=== PATIENT | female | born 1980 | race Caucasian/White ===

== ENCOUNTER 2022-02-17 19:39 | Inpatient (IN) ==
[2022-02-17 22:41] LABS: Arterial Base Excess iSTAT -7 MMOL/L (-2.5-2.5); Arterial Bicarbonate iSTAT 16.7 MMOL/L (20-26); Arterial O2 Saturation iSTAT 98 % (95-100); Arterial PCO2 iSTAT 29 MM HG (35-48); Arterial PO2 iSTAT 110 MM HG (80-95); Arterial Total CO2 iSTAT 18 MMO/L (23-27); Arterial pH iSTAT 7.373 (7.35-7.45)
[2022-02-17 22:44] LABS: Basophils % 0.2 % (0.0-0.8); Eosinophils # 0.1 10*3/uL (0.0-0.87); Eosinophils % 1.2 % (0.00-10.9); Hematocrit 32.8 VOL% (35.7-47.0); Hemoglobin 11.5 GM/DL (12.0-16.0); Immature Granulocytes % 0.7 %; Immature Granulocytes Absolute 0.08 #; Lymphocytes # 1.3 10*3/uL (1.4-4.0); Lymphocytes % 11.7 % (21.3-54.2); Mean Corpuscular HGB Conc 35.1 GM/DL (32-36); Mean Corpuscular Volume 87.5 FL (87-102); Mean Platelet Volume 10.5 FL (9.6-12.0); Monocytes # 0.9 10*3/uL (0.11-0.8); Monocytes % 7.5 % (1.7-12.7); Neutrophils % 78.7 % (38.7-73.9); Platelet Count 263 T/CUMM (130-400); Red Blood Count 3.75 MC/CUMM (3.8-5.5); Red Cell Distribution Width 14.4 % (9.3-17.3); White Blood Count 11.3 T/CUMM (4-12)
[2022-02-17] MEDS ORDERED: ACETAMINOPHEN 325 MG TABLET PO PRN (22:48)
[2022-02-17] MEDS ORDERED: diphenhydrAMINE CAP 25 MG CAPSULE PO PRN (22:48)
[2022-02-17] MEDS ORDERED: NICOTINE 21 MG/24 HR PATCH TRANSDERM PRN (22:48)
[2022-02-17] MEDS: ALBUTEROL 2.5 MG/3 ML NEB RESP TX SCH (22:48)
[2022-02-17 23:03] LABS: Calcium 8.6 MG/DL (8.5-10.1); Osmolality,Calculated 282.3 MOS/KG (273-304)
[2022-02-17 23:05] LABS: Potassium 2.2 MMOL/L (3.5-5.1)
[2022-02-17 23:16] LABS: Eosinophils 1 % (0-10); Lymphocytes 12 % (20-55); Platelet Estimate Adequate; Total Cells Counted 100
[2022-02-17] MEDS ORDERED: VANCOMYCIN INJ 1,250 MG in SODIUM CHLORIDE 0.9% 250 ML IV ONE (23:30)
[2022-02-17] MEDS ORDERED: OSELTAMIVIR 75 MG CAPSULE PO ONE (23:30)
[2022-02-17] MEDS ORDERED: PIPERACILLIN/TAZOBACTAM 3,375 MG in SODIUM CHLORIDE 0.9% 100 ML IV ONE (23:30)
[2022-02-17] MEDS: AZITHROMYCIN INJ 500 MG in SODIUM CHLORIDE 0.9% 250 ML IV SCH (23:40)
[2022-02-17] MEDS: SODIUM CHLORIDE 0.9% 1,000 ML IV SCH (23:45)
[2022-02-17] MEDS ORDERED: POTASSIUM CHLORIDE 20 MEQ TABLET PO ONE (23:45)
[2022-02-18] MEDS: ALBUTEROL/IPRATROPIUM 3 ML NEB RESP TX SCH ×6 (00:55→19:59)
[2022-02-18] MEDS ORDERED: VANCOMYCIN INJ 1,250 MG in SODIUM CHLORIDE 0.9% 250 ML IV ONE (01:00)
[2022-02-18] MEDS ORDERED: ALBUTEROL 2.5 MG/3 ML NEB RESP TX PRN (01:27)
[2022-02-18] MEDS: PIPERACILLIN/TAZOBACTAM 3,375 MG in SODIUM CHLORIDE 0.9% 100 ML IV SCH ×3 (02:28→23:55)
[2022-02-18] MEDS ORDERED: POTASSIUM CHLORIDE 20 MEQ TABLET PO ONE (04:00)
[2022-02-18 05:21] LABS: Basophils % 0.5 % (0.0-0.8); Eosinophils # 0.2 10*3/uL (0.0-0.87); Eosinophils % 2.4 % (0.00-10.9); Hematocrit 32.3 VOL% (35.7-47.0); Immature Granulocytes % 0.5 %; Immature Granulocytes Absolute 0.04 #; Lymphocytes # 1.2 10*3/uL (1.4-4.0); Lymphocytes % 14.7 % (21.3-54.2); Mean Corpuscular HGB Conc 34.1 GM/DL (32-36); Mean Platelet Volume 10.5 FL (9.6-12.0); Monocytes # 0.9 10*3/uL (0.11-0.8); Monocytes % 10.6 % (1.7-12.7); Neutrophils % 71.3 % (38.7-73.9); Platelet Count 242 T/CUMM (130-400); Red Blood Count 3.63 MC/CUMM (3.8-5.5); Red Cell Distribution Width 14.4 % (9.3-17.3); White Blood Count 8.3 T/CUMM (4-12)
[2022-02-18 05:39] LABS: Calcium 8.4 MG/DL (8.5-10.1); Osmolality,Calculated 282.4 MOS/KG (273-304)
[2022-02-18 05:41] LABS: Potassium 2.2 MMOL/L (3.5-5.1)
[2022-02-18] MEDS: POTASSIUM CHLORIDE RIDER 10 MEQ/100 ML PREMIX IV PRN ×7 (05:52→23:54)
[2022-02-18] MEDS: PANTOPRAZOLE 40 MG TABLET PO SCH (08:59)
[2022-02-18] MEDS: guaiFENesin/DM ER 600-30 MG TABLET PO PRN (08:59)
[2022-02-18] MEDS ORDERED: HEPARIN 5,000 UNIT/1 ML VIAL SUBCUT SCH (09:00)
[2022-02-18] MEDS ORDERED: OSELTAMIVIR 75 MG CAPSULE PO SCH (09:00)
[2022-02-18] MEDS: POTASSIUM CHLORIDE 20 MEQ TABLET PO SCH ×3 (09:35→21:19)
[2022-02-18] MEDS: CHOLECALCIFEROL 5,000 UNIT TABLET PO SCH (11:49)
[2022-02-18 12:34] LABS: Osmolality,Calculated 283.3 MOS/KG (273-304)
[2022-02-18 12:38] LABS: Potassium 2.4 MMOL/L (3.5-5.1)
[2022-02-18] MEDS: hydrALAZINE 20 MG/1 ML VIAL IV PRN ×2 (12:58→22:40)
[2022-02-18] MEDS: SODIUM CHLORIDE 0.9% 1,000 ML IV SCH (14:53)
[2022-02-18] MEDS ORDERED: REMDESIVIR 200 MG in SODIUM CHLORIDE 0.9% 210 ML IV ONE (15:00)
[2022-02-18] MEDS: RIVAROXABAN 20 MG TABLET PO SCH (17:12)
[2022-02-18] MEDS: ASCORBIC ACID 500 MG TABLET PO SCH (21:19)
[2022-02-18] MEDS: VANCOMYCIN INJ 1,250 MG in SODIUM CHLORIDE 0.9% 250 ML IV SCH (21:20)
[2022-02-18] MEDS: AZITHROMYCIN INJ 500 MG in SODIUM CHLORIDE 0.9% 250 ML IV SCH (22:40)
[2022-02-19] MEDS: ALBUTEROL/IPRATROPIUM 3 ML NEB RESP TX SCH ×8 (00:34→23:35)
[2022-02-19] MEDS: POTASSIUM CHLORIDE RIDER 10 MEQ/100 ML PREMIX IV PRN ×6 (01:00→19:38)
[2022-02-19] MEDS: SODIUM CHLORIDE 0.9% 1,000 ML IV SCH ×2 (03:59→17:17)
[2022-02-19 05:18] LABS: Basophils % 0.6 % (0.0-0.8); Eosinophils # 0.3 10*3/uL (0.0-0.87); Eosinophils % 5.8 % (0.00-10.9); Hematocrit 30.1 VOL% (35.7-47.0); Hemoglobin 10.4 GM/DL (12.0-16.0); Immature Granulocytes % 0.4 %; Immature Granulocytes Absolute 0.02 #; Lymphocytes % 19.7 % (21.3-54.2); Mean Corpuscular HGB Conc 34.6 GM/DL (32-36); Mean Corpuscular Volume 89.1 FL (87-102); Mean Platelet Volume 10.7 FL (9.6-12.0); Monocytes # 0.8 10*3/uL (0.11-0.8); Monocytes % 15.9 % (1.7-12.7); Neutrophils % 57.6 % (38.7-73.9); Platelet Count 256 T/CUMM (130-400); Red Blood Count 3.38 MC/CUMM (3.8-5.5); Red Cell Distribution Width 14.6 % (9.3-17.3)
[2022-02-19 05:43] LABS: Osmolality,Calculated 282.1 MOS/KG (273-304)
[2022-02-19 05:44] LABS: Eosinophils 7 % (0-10); Lymphocytes 19 % (20-55); Microcytosis Slight; Total Cells Counted 100
[2022-02-19 05:45] LABS: Albumin 1.9 G/DL (3.4-5.0); Bilirubin,Direct 0.17 MG/DL (0.0-0.20); Bilirubin,Indirect 0.5 MG/DL (0.0-1.0); Bilirubin,Total 0.7 MG/DL (0.20-1.00); Total Protein 6.5 G/DL (6.4-8.2)
[2022-02-19] MEDS: PIPERACILLIN/TAZOBACTAM 3,375 MG in SODIUM CHLORIDE 0.9% 100 ML IV SCH ×2 (10:20→19:38)
[2022-02-19] MEDS: REMDESIVIR 100 MG in SODIUM CHLORIDE 0.9% 100 ML IV SCH (10:23)
[2022-02-19] MEDS: ONDANSETRON 4 MG/2 ML VIAL IV PRN (10:24)
[2022-02-19] MEDS: DEXAMETHASONE 10 MG/1 ML VIAL IV SCH (10:25)
[2022-02-19] MEDS: PANTOPRAZOLE 40 MG TABLET PO SCH (10:25)
[2022-02-19] MEDS: ASCORBIC ACID 500 MG TABLET PO SCH ×2 (10:26→21:49)
[2022-02-19] MEDS: CHOLECALCIFEROL 5,000 UNIT TABLET PO SCH (10:26)
[2022-02-19] MEDS: ZINC GLUCONATE 50 MG TABLET PO SCH (10:26)
[2022-02-19] MEDS: guaiFENesin/DM ER 600-30 MG TABLET PO PRN (10:26)
[2022-02-19] MEDS: POTASSIUM CHLORIDE 20 MEQ TABLET PO SCH ×3 (10:33→21:49)
[2022-02-19] MEDS: VANCOMYCIN INJ 1,250 MG in SODIUM CHLORIDE 0.9% 250 ML IV SCH (17:18)
[2022-02-19] MEDS: RIVAROXABAN 20 MG TABLET PO SCH (17:18)
[2022-02-19] MEDS: AZITHROMYCIN INJ 500 MG in SODIUM CHLORIDE 0.9% 250 ML IV SCH (23:14)
[2022-02-20] MEDS: ALBUTEROL/IPRATROPIUM 3 ML NEB RESP TX SCH ×5 (00:19→19:47)
[2022-02-20] MEDS: PIPERACILLIN/TAZOBACTAM 3,375 MG in SODIUM CHLORIDE 0.9% 100 ML IV SCH ×3 (01:10→17:55)
[2022-02-20] MEDS: SODIUM CHLORIDE 0.9% 1,000 ML IV SCH ×3 (01:18→16:18)
[2022-02-20 05:53] LABS: Basophils % 0.3 % (0.0-0.8); Eosinophils % 0.1 % (0.00-10.9); Hematocrit 31.5 VOL% (35.7-47.0); Hemoglobin 10.7 GM/DL (12.0-16.0); Immature Granulocytes Absolute 0.15 #; Lymphocytes # 0.9 10*3/uL (1.4-4.0); Lymphocytes % 11.7 % (21.3-54.2); Mean Platelet Volume 10.8 FL (9.6-12.0); Monocytes # 0.7 10*3/uL (0.11-0.8); Monocytes % 10.1 % (1.7-12.7); Neutrophils % 75.8 % (38.7-73.9); Platelet Count 282 T/CUMM (130-400); Red Cell Distribution Width 14.6 % (9.3-17.3); White Blood Count 7.4 T/CUMM (4-12)
[2022-02-20 06:10] LABS: Calcium 8.2 MG/DL (8.5-10.1); Osmolality,Calculated 280.4 MOS/KG (273-304); Potassium 3.2 MMOL/L (3.5-5.1)
[2022-02-20 06:14] LABS: Albumin 1.9 G/DL (3.4-5.0); Bilirubin,Direct 0.19 MG/DL (0.0-0.20); Bilirubin,Indirect 0.2 MG/DL (0.0-1.0); Bilirubin,Total 0.4 MG/DL (0.20-1.00); Total Protein 5.9 G/DL (6.4-8.2)
[2022-02-20] MEDS: POTASSIUM CHLORIDE 20 MEQ TABLET PO SCH ×3 (11:43→20:41)
[2022-02-20] MEDS: ASCORBIC ACID 500 MG TABLET PO SCH ×2 (11:43→20:41)
[2022-02-20] MEDS: PANTOPRAZOLE 40 MG TABLET PO SCH (11:43)
[2022-02-20] MEDS: ZINC GLUCONATE 50 MG TABLET PO SCH (11:43)
[2022-02-20] MEDS: CHOLECALCIFEROL 5,000 UNIT TABLET PO SCH (11:44)
[2022-02-20] MEDS: DEXAMETHASONE 10 MG/1 ML VIAL IV SCH (11:44)
[2022-02-20] MEDS: REMDESIVIR 100 MG in SODIUM CHLORIDE 0.9% 100 ML IV SCH (11:46)
[2022-02-20] MEDS: VANCOMYCIN INJ 1,250 MG in SODIUM CHLORIDE 0.9% 250 ML IV SCH (11:54)
[2022-02-20] MEDS: RIVAROXABAN 20 MG TABLET PO SCH (16:25)
[2022-02-20] MEDS ORDERED: BENZONATATE 100 MG CAPSULE PO PRN (16:48)
[2022-02-20] MEDS: guaiFENesin/DM ER 600-30 MG TABLET PO SCH (22:49)
[2022-02-20] MEDS: AZITHROMYCIN INJ 500 MG in SODIUM CHLORIDE 0.9% 250 ML IV SCH (22:49)
[2022-02-21] MEDS: PIPERACILLIN/TAZOBACTAM 3,375 MG in SODIUM CHLORIDE 0.9% 100 ML IV SCH ×4 (00:43→23:04)
[2022-02-21] MEDS: ZALEPLON 5 MG CAPSULE PO PRN ×3 (00:48→23:05)
[2022-02-21] MEDS: ALBUTEROL/IPRATROPIUM 3 ML NEB RESP TX SCH ×6 (05:18→19:43)
[2022-02-21 06:21] LABS: Basophils % 0.3 % (0.0-0.8); Eosinophils % 0.1 % (0.00-10.9); Hematocrit 32.4 VOL% (35.7-47.0); Hemoglobin 10.9 GM/DL (12.0-16.0); Immature Granulocytes % 5.8 %; Immature Granulocytes Absolute 0.55 #; Lymphocytes # 1.4 10*3/uL (1.4-4.0); Lymphocytes % 14.4 % (21.3-54.2); Mean Corpuscular HGB Conc 33.6 GM/DL (32-36); Mean Corpuscular Volume 90.8 FL (87-102); Mean Platelet Volume 10.9 FL (9.6-12.0); Monocytes # 1.3 10*3/uL (0.11-0.8); Monocytes % 13.4 % (1.7-12.7); Platelet Count 352 T/CUMM (130-400); Red Blood Count 3.57 MC/CUMM (3.8-5.5); Red Cell Distribution Width 15.2 % (9.3-17.3); White Blood Count 9.5 T/CUMM (4-12)
[2022-02-21 06:43] LABS: Lymphocytes 15 % (20-55); Platelet Estimate Normal; Total Cells Counted 100
[2022-02-21 06:51] LABS: Calcium 8.3 MG/DL (8.5-10.1); Potassium 3.2 MMOL/L (3.5-5.1)
[2022-02-21 07:02] LABS: Albumin 2.1 G/DL (3.4-5.0); Bilirubin,Direct 0.16 MG/DL (0.0-0.20); Bilirubin,Indirect 0.2 MG/DL (0.0-1.0); Bilirubin,Total 0.4 MG/DL (0.20-1.00); Total Protein 6.9 G/DL (6.4-8.2)
[2022-02-21] MEDS: CHOLECALCIFEROL 5,000 UNIT TABLET PO SCH (09:07)
[2022-02-21] MEDS: PANTOPRAZOLE 40 MG TABLET PO SCH (09:07)
[2022-02-21] MEDS: ASCORBIC ACID 500 MG TABLET PO SCH ×2 (09:07→20:26)
[2022-02-21] MEDS: guaiFENesin/DM ER 600-30 MG TABLET PO SCH ×2 (09:07→20:27)
[2022-02-21] MEDS: POTASSIUM CHLORIDE 20 MEQ TABLET PO SCH ×2 (09:07→20:26)
[2022-02-21] MEDS: ZINC GLUCONATE 50 MG TABLET PO SCH (09:07)
[2022-02-21] MEDS: REMDESIVIR 100 MG in SODIUM CHLORIDE 0.9% 100 ML IV SCH (09:23)
[2022-02-21] MEDS: DEXAMETHASONE 10 MG/1 ML VIAL IV SCH (09:23)
[2022-02-21] MEDS: SODIUM CHLORIDE 0.9% 1,000 ML IV SCH (13:08)
[2022-02-21] MEDS: LOSARTAN 50 MG TABLET PO SCH (14:21)
[2022-02-21] MEDS: RIVAROXABAN 20 MG TABLET PO SCH (16:42)
[2022-02-21] MEDS: AZITHROMYCIN INJ 500 MG in SODIUM CHLORIDE 0.9% 250 ML IV SCH (23:04)
[2022-02-22] MEDS: SODIUM CHLORIDE 0.9% 1,000 ML IV SCH ×2 (00:14→09:08)
[2022-02-22] MEDS: ZALEPLON 5 MG CAPSULE PO PRN (00:14)
[2022-02-22] MEDS: ALBUTEROL/IPRATROPIUM 3 ML NEB RESP TX SCH ×3 (01:12→11:20)
[2022-02-22] MEDS: POTASSIUM CHLORIDE RIDER 10 MEQ/100 ML PREMIX IV PRN ×2 (03:14→05:39)
[2022-02-22] MEDS ORDERED: POTASSIUM CHLORIDE 20 MEQ TABLET PO ONE (08:20)
[2022-02-22] MEDS: ONDANSETRON 4 MG/2 ML VIAL IV PRN (09:01)
[2022-02-22] MEDS: REMDESIVIR 100 MG in SODIUM CHLORIDE 0.9% 100 ML IV SCH (09:02)
[2022-02-22] MEDS: guaiFENesin/DM ER 600-30 MG TABLET PO SCH (09:04)
[2022-02-22] MEDS: LOSARTAN 50 MG TABLET PO SCH (09:04)
[2022-02-22] MEDS: POTASSIUM CHLORIDE 20 MEQ TABLET PO SCH (09:05)
[2022-02-22] MEDS: ASCORBIC ACID 500 MG TABLET PO SCH (09:05)
[2022-02-22] MEDS: PANTOPRAZOLE 40 MG TABLET PO SCH (09:05)
[2022-02-22] MEDS: CHOLECALCIFEROL 5,000 UNIT TABLET PO SCH (09:05)
[2022-02-22] MEDS: DEXAMETHASONE 10 MG/1 ML VIAL IV SCH (09:15)
[2022-02-22] MEDS: ZINC GLUCONATE 50 MG TABLET PO SCH (09:15)
[2022-02-22 09:51] LABS: Basophils % 0.2 % (0.0-0.8); Eosinophils # 0.1 10*3/uL (0.0-0.87); Eosinophils % 0.7 % (0.00-10.9); Hematocrit 33.1 VOL% (35.7-47.0); Hemoglobin 10.9 GM/DL (12.0-16.0); Immature Granulocytes Absolute 0.64 #; Lymphocytes # 1.7 10*3/uL (1.4-4.0); Lymphocytes % 21.5 % (21.3-54.2); Mean Corpuscular HGB Conc 32.9 GM/DL (32-36); Mean Corpuscular Volume 93.2 FL (87-102); Mean Platelet Volume 10.5 FL (9.6-12.0); Monocytes # 1.2 10*3/uL (0.11-0.8); Monocytes % 14.9 % (1.7-12.7); Neutrophils % 54.7 % (38.7-73.9); Platelet Count 356 T/CUMM (130-400); Red Blood Count 3.55 MC/CUMM (3.8-5.5); Red Cell Distribution Width 15.5 % (9.3-17.3)
[2022-02-22 10:07] LABS: Calcium 8.4 MG/DL (8.5-10.1); Osmolality,Calculated 284.1 MOS/KG (273-304)
[2022-02-22 10:08] LABS: Albumin 2.3 G/DL (3.4-5.0); Bilirubin,Direct 0.18 MG/DL (0.0-0.20); Bilirubin,Indirect 0.2 MG/DL (0.0-1.0); Bilirubin,Total 0.4 MG/DL (0.20-1.00); Total Protein 7.2 G/DL (6.4-8.2)
[2022-02-22 10:15] LABS: Eosinophils 1 % (0-10); Lymphocytes 28 % (20-55); Total Cells Counted 100
[2022-02-22 10:16] LABS: Platelet Estimate Normal
[2022-02-22 10:17] LABS: Hypersegmented Neutrophil SLIGHT
[2022-02-22] MEDS: PIPERACILLIN/TAZOBACTAM 3,375 MG in SODIUM CHLORIDE 0.9% 100 ML IV SCH (10:41)
[2022-02-22 12:27] VITALS: BP 170/90
== END 2022-02-22 14:14 | disposition home or self-care (01) | DRG 177 ==
LOC: SUATTDRO 21:19 → N.TELEN 21:19
PROVIDERS: ADMIT Internal Medicine; ATTEND Hospitalist

== ENCOUNTER 2022-03-01 20:38 | Observation (INO) ==
[2022-03-01] MEDS ORDERED: PANTOPRAZOLE 40 MG VIAL IV STA (22:16)
[2022-03-01] MEDS ORDERED: SODIUM CHLORIDE 0.9% 1,000 ML IV STA (22:16)
[2022-03-01] MEDS ORDERED: ONDANSETRON 4 MG/2 ML VIAL IV STA (22:16)
[2022-03-01] MEDS ORDERED: HYDROmorphone 1 MG/1 ML SYRINGE IV STA (22:16)
[2022-03-01 23:32] LABS: Mucus,Urine Occasional /LPF (Occasional); RBC,Urine 26 /HPF (0-4); Squamous Epithelial Cell,Urine Occasional /HPF (0-10)
[2022-03-01 23:33] LABS: Basophils % 0.1 % (0.0-0.8); Bilirubin,Urine Negative (Negative); Blood, Urine Moderate mg/dL (Negative); Eosinophils % 0.2 % (0.00-10.9); Glucose,Urine (UA) Negative (Negative); Hematocrit 30.3 VOL% (35.7-47.0); Hemoglobin 10.1 GM/DL (12.0-16.0); Immature Granulocytes % 2.2 %; Immature Granulocytes Absolute 0.47 #; Ketones,Urine Negative (Negative); Lymphocytes # 2.1 10*3/uL (1.4-4.0); Lymphocytes % 9.6 % (21.3-54.2); Mean Corpuscular HGB Conc 33.3 GM/DL (32-36); Mean Corpuscular Volume 93.5 FL (87-102); Mean Platelet Volume 10.6 FL (9.6-12.0); Monocytes # 2.5 10*3/uL (0.11-0.8); Monocytes % 11.4 % (1.7-12.7); Neutrophils % 76.5 % (38.7-73.9); Nitrite,Urine Negative (Negative); Platelet Count 394 T/CUMM (130-400); Protein,Urine Negative (Negative); Red Blood Count 3.24 MC/CUMM (3.8-5.5); Red Cell Distribution Width 15.7 % (9.3-17.3); Urine Appearance Clear (Clear); Urine Color Yellow (Yellow); Urine Specific Gravity 1.015 (1.001-1.035); Urine Urobilinogen 0.2 eU/dL (<2.0); White Blood Count 21.8 T/CUMM (4-12)
[2022-03-02 00:05] LABS: Albumin 2.3 G/DL (3.4-5.0); Bilirubin,Total 0.4 MG/DL (0.20-1.00); Osmolality,Calculated 283.1 MOS/KG (273-304); Potassium 2.8 MMOL/L (3.5-5.1); Total Protein 5.5 G/DL (6.4-8.2)
[2022-03-02] MEDS ORDERED: POTASSIUM CHLORIDE RIDER 20 MEQ/100 ML PREMIX IV STA (00:20)
[2022-03-02] MEDS ORDERED: POTASSIUM CHLORIDE RIDER 20 MEQ/200 ML PREMIX IV STA (00:23)
[2022-03-02 00:30] LABS: Lymphocytes 10 % (20-55); Platelet Estimate Normal; Total Cells Counted 100
[2022-03-02] MEDS ORDERED: FLUCONAZOLE INJ 200 MG/100 ML PREMIX IV ONE (00:48)
[2022-03-02] MEDS ORDERED: amLODIPine 5 MG TABLET PO STA (01:01)
[2022-03-02] MEDS ORDERED: ACETAMINOPHEN 325 MG TABLET PO PRN (01:17)
[2022-03-02] MEDS ORDERED: hydrALAZINE 20 MG/1 ML VIAL IV PRN (01:17)
[2022-03-02] MEDS ORDERED: SIMETHICONE CHEW 125 MG TABLET PO PRN (01:17)
[2022-03-02] MEDS ORDERED: ONDANSETRON 4 MG/2 ML VIAL IV PRN (01:17)
[2022-03-02] MEDS ORDERED: HYDROmorphone 1 MG/1 ML SYRINGE IV STA (01:20)
[2022-03-02] MEDS ORDERED: traMADol 50 MG TABLET PO PRN (01:48)
[2022-03-02] MEDS ORDERED: BISACODYL 10 MG SUPP RECTAL ONE ×2 (02:30→03:00)
[2022-03-02] MEDS: NYSTATIN 500,000 UNIT/5 ML UDCUP SWISH/SWAL SCH ×3 (03:00→13:16)
[2022-03-02] MEDS: POTASSIUM CHLORIDE RIDER 10 MEQ/100 ML PREMIX IV SCH ×2 (03:30→05:33)
[2022-03-02 06:26] LABS: Basophils % 0.2 % (0.0-0.8); Eosinophils # 0.1 10*3/uL (0.0-0.87); Eosinophils % 0.7 % (0.00-10.9); Hematocrit 33.4 VOL% (35.7-47.0); Immature Granulocytes % 2.2 %; Immature Granulocytes Absolute 0.38 #; Lymphocytes # 2.7 10*3/uL (1.4-4.0); Lymphocytes % 15.5 % (21.3-54.2); Mean Corpuscular HGB Conc 32.9 GM/DL (32-36); Mean Corpuscular Volume 92.8 FL (87-102); Mean Platelet Volume 10.3 FL (9.6-12.0); Monocytes # 2.1 10*3/uL (0.11-0.8); Monocytes % 11.8 % (1.7-12.7); Neutrophils % 69.6 % (38.7-73.9); Platelet Count 409 T/CUMM (130-400); Red Cell Distribution Width 15.5 % (9.3-17.3); White Blood Count 17.5 T/CUMM (4-12)
[2022-03-02 06:29] LABS: Barbiturates Screen,Urine Negative (Negative); Benzodiazepines Screen,Urine Negative (Negative); Cannabinoid Screen,Urine Negative (Negative); Opiate Screen,Urine Negative (Negative); Phencyclidine Screen,Urine Negative (Negative)
[2022-03-02 06:36] LABS: INR 1.1; PT Patient Result 12.3 SECS (10.1-12.1); Partial Thromboplastin Time 33.8 SECS (23.7-32.9)
[2022-03-02 06:44] LABS: Calcium 7.8 MG/DL (8.5-10.1); Potassium 3.1 MMOL/L (3.5-5.1)
[2022-03-02] MEDS ORDERED: MORPHINE 2 MG/1 ML SYRINGE IV PRN (06:47)
[2022-03-02] MEDS: POTASSIUM CHLORIDE INJ 40 MEQ in SODIUM CHLORIDE 0.45% 1,000 ML IV SCH ×2 (07:12→12:11)
[2022-03-02] MEDS ORDERED: PANTOPRAZOLE 40 MG VIAL IV SCH (09:00)
[2022-03-02] MEDS ORDERED: DOCUSATE SODIUM 100 MG CAPSULE PO SCH (09:00)
[2022-03-02] MEDS ORDERED: ENOXAPARIN 40 MG/0.4 ML SYRINGE SUBCUT SCH (09:00)
[2022-03-02 10:31] LABS: HIV Antigen/Antibody Result Nonreactive (Nonreactive)
[2022-03-02] MEDS ORDERED: TAMSULOSIN 0.4 MG CAPSULE PO SCH (11:30)
[2022-03-02 16:15] VITALS: BP 152/94
[2022-03-03] MEDS ORDERED: FLUCONAZOLE INJ 200 MG/100 ML PREMIX IV SCH (09:00)
== END 2022-03-02 16:38 | disposition home or self-care (01) ==
LOC: N.ED 20:38 → N.EDINP 20:38 → N.3E 03-02 04:25
PROVIDERS: ADMIT Internal Medicine; ATTEND Internal Medicine